=== PATIENT | male | born 1970 | race Caucasian/White ===

== ENCOUNTER → 2024-03-20 06:46 | Outpatient (REF) | payer OTHER, SELFPAY | LOC: HWRAD 06:46 | PROVIDERS: ATTENDING PHYSICIAN Nurse Practitioner Family | DX: R10.31 Right lower quadrant pain (principal) | CPT/HCPCS: 76700 ==

== ENCOUNTER → 2024-04-10 07:16 | Outpatient (REF) | payer OTHER, SELFPAY | LOC: HWRAD 07:16 | PROVIDERS: ATTENDING PHYSICIAN Nurse Practitioner Family | DX: R10.30 Lower abdominal pain, unspecified (principal) | CPT/HCPCS: 76882 ==

== ENCOUNTER → 2024-09-06 06:27 | Day surgery (SDC) | payer OTHER, SELFPAY | LOC: GI 06:27 | PROVIDERS: ATTENDING PHYSICIAN Internal Medicine | DX: Z12.11 Encounter for screening for malignant neoplasm of colon (principal); K55.21 Angiodysplasia of colon with hemorrhage; K57.30 Diverticulosis of large intestine without perforation or abscess without bleeding; K62.89 Other specified diseases of anus and rectum | CPT/HCPCS: 45382 ==